=== PATIENT | female | born 1980 | race Caucasian/White ===

== ENCOUNTER 2022-01-07 19:34 | Inpatient (IN) | payer BC, OTHER ==
[2022-01-07] MEDS ORDERED: Sodium Chloride 0.9% 1,000 ML IV ONE (19:58)
[2022-01-07] MEDS ORDERED: Acetaminophen 500 MG Tab PO ONE (19:58)
[2022-01-07 20:19] LABS: CHLORIDE,CL 97 mmol/L (98-107); SODIUM,NA 131 mmol/L (136-145)
[2022-01-07 20:48] LABS: CORONAVIRUS COVID-19 NAA NEGATIVE (NEGATIVE)
[2022-01-07] MEDS ORDERED: Azithromycin 500 MG in Sodium Chloride 0.9% 250 ML IV ONE (20:58)
[2022-01-07] MEDS ORDERED: Acetaminophen 325 MG Tab PO PRN (21:09)
[2022-01-07] MEDS ORDERED: cefTRIAXone 1 GM Vial IVPUSH ONE (21:09)
[2022-01-07] MEDS ORDERED: Ketorolac 30 MG/ML SDV IVPUSH PRN (21:30)
[2022-01-07] MEDS: Sodium Chloride 0.9% 1,000 ML IV SCH (21:46)
[2022-01-07] MEDS ORDERED: Propranolol 80 MG Cap.ER PO ONE (23:00)
[2022-01-07] MEDS ORDERED: Zolpidem 5 MG Tab PO PRN (23:03)
[2022-01-07] MEDS ORDERED: Ondansetron 4 MG Tab.DIS PO PRN (23:05)
[2022-01-07] MEDS: oxyCODONE 5 MG Tab PO PRN (23:14)
[2022-01-07] MEDS: Cyclobenzaprine 5 MG Tab PO PRN (23:15)
[2022-01-07] MEDS: Sertraline 50 MG Tab PO SCH (23:33)
[2022-01-08] MEDS: oxyCODONE 5 MG Tab PO PRN ×3 (03:52→21:21)
[2022-01-08] MEDS: Levothyroxine 75 MCG Tab PO SCH ×2 (06:16→06:30)
[2022-01-08] MEDS: Levothyroxine 100 MCG Tab PO SCH ×2 (06:16→06:30)
[2022-01-08 07:53] LABS: ANION GAP 11.9 mmol/L (5-15); CHLORIDE,CL 101 mmol/L (98-107); SODIUM,NA 133 mmol/L (136-145)
[2022-01-08] MEDS: Acetaminophen 325 MG Tab PO PRN ×3 (08:03→18:08)
[2022-01-08] MEDS ORDERED: oxyCODONE 5 MG Tab PO PRN (08:35)
[2022-01-08] MEDS ORDERED: Cyclobenzaprine 5 MG Tab PO PRN (08:35)
[2022-01-08] MEDS ORDERED: Zolpidem 5 MG Tab PO PRN (09:00)
[2022-01-08] MEDS ORDERED: Potassium Chloride 20 MEQ Tab.ER PO ONE (09:45)
[2022-01-08] MEDS ORDERED: Potassium Chloride 10 MEQ Tab.ER PO ONE (10:00)
[2022-01-08] MEDS: guaiFENesin 600 MG Tab.ER PO SCH ×2 (10:16→21:20)
[2022-01-08] MEDS ORDERED: cefTRIAXone 1 GM Vial IVPUSH SCH (11:45)
[2022-01-08] MEDS: Sodium Chloride 0.9% 1,000 ML IV SCH (14:27)
[2022-01-08] MEDS ORDERED: Sertraline 50 MG Tab PO SCH (21:00)
[2022-01-08] MEDS ORDERED: Propranolol 80 MG Cap.ER PO SCH (21:00)
[2022-01-08] MEDS: Zolpidem 5 MG Tab PO PRN (21:20)
[2022-01-08] MEDS: rOPINIRole 0.25 MG Tab PO SCH (21:20)
[2022-01-08] MEDS: Sertraline 50 MG Tab PO SCH (21:20)
[2022-01-08] MEDS: Cyclobenzaprine 5 MG Tab PO PRN (21:20)
[2022-01-08] MEDS: Enoxaparin 40 MG/0.4 ML Syringe SUBCUT SCH (21:22)
[2022-01-08] MEDS: cefTRIAXone 1 GM Vial IVPUSH SCH (21:25)
[2022-01-08] MEDS: Azithromycin 500 MG in Sodium Chloride 0.9% 250 ML IV SCH (21:28)
[2022-01-09] MEDS: Acetaminophen 325 MG Tab PO PRN ×2 (03:01→15:53)
[2022-01-09] MEDS: Sodium Chloride 0.9% 1,000 ML IV SCH (04:53)
[2022-01-09] MEDS ORDERED: Levothyroxine 100 MCG Tab PO SCH (07:30)
[2022-01-09] MEDS: Levothyroxine 100 MCG Tab PO SCH (07:48)
[2022-01-09] MEDS: Levothyroxine 75 MCG Tab PO SCH (07:48)
[2022-01-09 08:09] LABS: ANION GAP 11.3 mmol/L (5-15); CHLORIDE,CL 106 mmol/L (98-107); SODIUM,NA 139 mmol/L (136-145)
[2022-01-09] MEDS: guaiFENesin 600 MG Tab.ER PO SCH ×2 (08:35→20:59)
[2022-01-09] MEDS ORDERED: Potassium Chloride 10 MEQ Tab.ER PO ONE (10:15)
[2022-01-09] MEDS: oxyCODONE 5 MG Tab PO PRN ×2 (10:24→20:58)
[2022-01-09] MEDS: Enoxaparin 40 MG/0.4 ML Syringe SUBCUT SCH (20:44)
[2022-01-09] MEDS: Azithromycin 500 MG in Sodium Chloride 0.9% 250 ML IV SCH (20:46)
[2022-01-09] MEDS: cefTRIAXone 1 GM Vial IVPUSH SCH (20:46)
[2022-01-09] MEDS: Zolpidem 5 MG Tab PO PRN (20:59)
[2022-01-09] MEDS: rOPINIRole 0.25 MG Tab PO SCH (20:59)
[2022-01-09] MEDS: Sertraline 50 MG Tab PO SCH (20:59)
[2022-01-10] MEDS: Acetaminophen 325 MG Tab PO PRN (04:53)
[2022-01-10] MEDS: Levothyroxine 75 MCG Tab PO SCH ×2 (06:11→06:31)
[2022-01-10] MEDS: Levothyroxine 100 MCG Tab PO SCH ×2 (06:11→06:31)
[2022-01-10 07:41] LABS: ANION GAP 12.1 mmol/L (5-15); CHLORIDE,CL 104 mmol/L (98-107); SODIUM,NA 138 mmol/L (136-145)
[2022-01-10] MEDS: guaiFENesin 600 MG Tab.ER PO SCH (08:25)
[2022-01-10] MEDS ORDERED: Potassium Chloride 20 MEQ Tab.ER PO ONE (09:08)
== END 2022-01-10 12:30 | disposition home or self-care (01) | DRG 720 ==
LOC: KA.ED 19:34 → KA.MS 21:15
PROVIDERS: ADMIT Nurse Practitioner Family; ATTEND Nurse Practitioner Family
DX: A41.89 Other specified sepsis (principal); J18.9 Pneumonia, unspecified organism; E87.2 Acidosis; R74.8 Abnormal levels of other serum enzymes; E87.6 Hypokalemia; E88.09 Other disorders of plasma-protein metabolism, not elsewhere classified; I47.9 Paroxysmal tachycardia, unspecified; E03.9 Hypothyroidism, unspecified; E06.3 Autoimmune thyroiditis; E04.1 Nontoxic single thyroid nodule; Z20.822 Contact with and (suspected) exposure to COVID-19; E78.2 Mixed hyperlipidemia; K82.4 Cholesterolosis of gallbladder; E53.8 Deficiency of other specified B group vitamins; I83.90 Asymptomatic varicose veins of unspecified lower extremity; G43.909 Migraine, unspecified, not intractable, without status migrainosus; E55.9 Vitamin D deficiency, unspecified; F41.1 Generalized anxiety disorder; F32.A Depression, unspecified; F51.01 Primary insomnia; K31.84 Gastroparesis; G25.81 Restless legs syndrome; K21.9 Gastro-esophageal reflux disease without esophagitis; H54.7 Unspecified visual loss; M19.90 Unspecified osteoarthritis, unspecified site; Z98.890 Other specified postprocedural states; Z88.5 Allergy status to narcotic agent; Z88.6 Allergy status to analgesic agent; Z88.8 Allergy status to other drugs, medicaments and biological substances; Z79.890 Hormone replacement therapy; Z79.899 Other long term (current) drug therapy; Z90.710 Acquired absence of both cervix and uterus; Z87.891 Personal history of nicotine dependence
CPT/HCPCS: 0240U; 36415; 71046; 80053; 83605; 84145; 84443; 85025; 86140; 87040; 87070; 87186; 87205; 96365; 96375; 99284; 99284-25; A9270-GY; J0456; J0696; J1650; J7030; J7050

== ENCOUNTER 2023-08-27 15:28 | Emergency (ER) | payer BC ==
[2023-08-27] MEDS ORDERED: Sodium Chloride 0.9% 10 ML Syringe FLUSH PRN (15:31)
[2023-08-27] MEDS ORDERED: methylPREDNISolone Sodium Succinate 125 MG/2 ML SDV IM ONE (15:44)
[2023-08-27] MEDS ORDERED: diphenhydrAMINE 50 MG/ML SDV IM ONE (15:44)
== END 2023-08-27 16:16 | disposition home or self-care (01) ==
LOC: KA.ED 15:28
DX: T78.1XXA Other adverse food reactions, not elsewhere classified, initial encounter (principal); E03.9 Hypothyroidism, unspecified; Z88.8 Allergy status to other drugs, medicaments and biological substances; Z88.5 Allergy status to narcotic agent; Z79.899 Other long term (current) drug therapy; Z79.2 Long term (current) use of antibiotics
CPT/HCPCS: 96372; 99283-25; 99284; J1200; J2930